=== PATIENT | male | born 1980 | race Caucasian/White ===

== ENCOUNTER 2017-02-20 18:22 | Emergency (ER) | payer OTHER ==
[~2017-02-20] VITALS: Ht 180.3 cm; Wt 158.8 kg
[~2017-02-20 18:22] MED LIST: AMOXICILLIN875 MG PO; AMOXIL500 MG PO; ENDOCET 325 MG-1 TA1 PO; FLEXERIL10 MG PO; MEDROL4 M2 PO; MOTRIN 600 MG600 MG PO; MOTRIN800 MG PO; PERCOCET 325 MG1 TA2 PO; PROAIR HFA8.5 GM INH; VICODIN 300 MG-1 TAB PO; VICODIN 5-3001 EACH PO
[2017-02-20 18:25] VITALS: BP 133/93
== END 2017-02-20 21:08 | disposition admitted as inpatient to this hospital (09) ==
LOC: ERH 18:22
DX: G47.00 Insomnia, unspecified (principal); R05 Cough

== ENCOUNTER 2017-03-20 07:41 | Emergency (ER) | payer OTHER ==
[~2017-03-20] VITALS: Ht 180.3 cm; Wt 158.8 kg
[2017-03-20 07:45] VITALS: BP 141/89
--- NOTE | 2017-03-20 08:33 | ED GENERAL ADULT ---
History of Present Illness General Chief Complaint: Lower Extremity Problems Stated Complaint: SWELLING TO FEET Source: patient Exam Limitations: no limitations Vital Signs & Intake/Output Vital Signs & Intake/Output Vital Signs Date Time Temp Pulse Resp B/P B/P Pulse O2 O2 Flow FiO2 Mean Ox Delivery Rate 03/20 0745 98.2 100 18 141/89 98 Room Air Allergies Coded Allergies: No Known Allergies (02/20/17) Reconcile Medications Albuterol Sulfate (Proair Hfa) 90 MCG HFA.AER.AD 2 PUF INH Q4-6 PRN PRN SHORTNESS OF BREATH (Reported) Triage Note: 36 YO MALE TO TRIAGE C/O INCREASE IN SWELLING IN BILATERAL FEET. HX OF ARTHIRITS, CRACKED BONES ON THE TOP OF HIS FEET, AND NEUORPATHY. DENIES SOB/CP. Triage Nurses Notes Reviewed? yes HPI: Mr. Mckeon is a 36 yo m current smoker (1/2 PPD x > 20 yrs) with a PMH significant for arthritis, neuropathy who presents to ED with BL pedal edema. Patient reports yesterday he noticed his feet began to swell and became progressively worse this morning. He was told by a [employer] Assessor jitendra he has arthritic changes in her feet but was never prescribed any meds. He also reports that he has a poor appetite because he lives in a long-term and does not have healthy options. He denies SOB, PND, orthopnea, palpitations, CP, nausea, vomting, feet pain, urinary or bowel symptoms. (Maggie MONTENEGRO,Rita) Past History Travel History Traveled to [place] past 21 day No Medical History Any Pertinent Medical History? 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 Yes (Rita Serrano MD) Review of Systems Review of Systems Constitutional: Reports: see HPI. (Rita Serrano MD) Physical Exam Physical Exam General Appearance: well developed/nourished, no apparent distress, alert, awake , obese Head: atraumatic, normal appearance Eyes: Bilateral: normal appearance, PERRL, EOMI. Ears, Nose, Throat: normal ENT inspection Neck: large neck size Respiratory: wheezing Cardiovascular: regular rate/rhythm Gastrointestinal: normal bowel sounds, soft, non-tender Extremities: pedal edema Neurologic/Psych: no motor/sensory deficits Core Measures ACS in differential dx? No CVA/TIA Diagnosis: No Sepsis Present: No Sepsis Focused Exam Completed? No (Maggie MONTENEGRO,Rita) Progress Differential Diagnoses I considered the following diagnoses in my evaluation of the patient: CHF, gout, cellulitis Initial ED EKG: none (Maggie MONTENEGRO,Rita) Differential Diagnoses I considered the following diagnoses in my evaluation of the patient: Plan of Care: Orders Procedure Date/time Status EKG 03/20 820 Active Diagnostic Imaging: Viewed by Me: Radiology Read. Discussed w/RAD: Radiology Read. CXR Impression: PATIENT: WALTER MCKEON PRESENT AGE: 36 PATIENT ACCOUNT NO: [id number] : 79 LOCATION: [facility] ORDERING PHYSICIAN: Rita Serrano MD SERVICE DATE: 03/20/17 EXAM TYPE: RAD - XRY- PORTABLE CHEST XRAY EXAMINATION: XR PORTABLE CHEST CLINICAL INFORMATION: Bilateral pedal edema and wheezing. Assess for congestive heart failure. COMPARISON: Chest x-ray 09/10/2016. TECHNIQUE: Portable AP erect view of the chest was obtained. FINDINGS: The lung macias are hypoexpanded bilaterally. Mild increased linear opacity at the bases may be consistent with atelectasis. There is mild bronchial wall thickening. The cardiac silhouette is normal in size. There are no pleural effusions. The central pulmonary vasculature appears normal. There are no acute osseous findings. IMPRESSION: 1. The lungs are hypoexpanded bilaterally with likely atelectasis at the bases. There is no focal consolidation. 2. Bronchial wall thickening may be consistent with reactive airways disease or bronchitis. 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 <Electronically signed in Other Vendor System> SIGNED BY: Lloyd Deluna MD 03/20/17927 (Roseanne Davila MD) Departure Departure Disposition: HOME OR SELF CARE Condition: Stable Clinical Impression Primary Impression: Leg edema Referrals: Erin Reynolds APRN (PCP/Family) Additional Instructions: Follow up with your PCP upon discharge Follow up for sleep study for KENZIE upon discharge Departure Forms: Customer Survey General Discharge Information (Rita Serrano MD) Resident Co-Sign Statement Statement: ED Attending supervision documentation- [x] I saw and evaluated the patient. I have also reviewed all the pertinent lab results and diagnostic results. I agree with the findings and the plan of care as documented in the Resident's documentation. [x] I have reviewed the ED Record and agree with the Resident's documentation. [] Additions or exceptions (if any) to the Resident's note and plan are summarized below: [] (Roseanne Davila MD) Critical Care Note Critical Care Note Critical Care Time: non-applicable (Rita Serrano MD)
--- NOTE | 2017-03-20 09:28 | RADIOLOGY REPORT ---
EXAMINATION: XR PORTABLE CHEST CLINICAL INFORMATION: Bilateral pedal edema and wheezing. Assess for congestive heart failure. COMPARISON: Chest x-ray 09/10/2016. TECHNIQUE: Portable AP erect view of the chest was obtained. FINDINGS: The lung macias are hypoexpanded bilaterally. Mild increased linear opacity at the bases may be consistent with atelectasis. There is mild bronchial wall thickening. The cardiac silhouette is normal in size. There are no pleural effusions. The central pulmonary vasculature appears normal. There are no acute osseous findings. IMPRESSION: 1. The lungs are hypoexpanded bilaterally with likely atelectasis at the bases. There is no focal consolidation. 2. Bronchial wall thickening may be consistent with reactive airways disease or bronchitis.
== END 2017-03-20 09:40 ==
LOC: ERH 07:41
DX: R60.0 Localized edema (principal)
CPT/HCPCS: 71045; 93005; 93010

== ENCOUNTER 2017-06-05 08:42 | Emergency (ER) | payer OTHER ==
[~2017-06-05] VITALS: Ht 180.3 cm; Wt 163.3 kg
[~2017-06-05 08:42] MED LIST changes: +AUGMENTIN 875-1 EACH PO; +HYDROCHLOROTH12.5 M3 PO; +IBUPROFEN800 M1 PO; +LYRICA50 M1 PO; +METFORMIN HCL1000 M1 PO; +PANTOPRAZOLE SO40 M1 PO
--- NOTE | 2017-06-05 10:08 | ED CARDIAC/CP/PALPITATIONS ---
History of Present Illness General Chief Complaint: Chest Pain Stated Complaint: CP Source: patient Exam Limitations: no limitations Vital Signs & Intake/Output Vital Signs & Intake/Output Vital Signs Date Time Temp Pulse Resp B/P B/P Pulse O2 O2 Flow FiO2 Mean Ox Delivery Rate 06/05 1318 98.0 88 20 140/80 98 Room Air ED Intake and Output 06/06 0000 06/05 1200 Intake Total Output Total Balance Patient 360 lb Weight Weight Reported by Patient Measurement Method Allergies Coded Allergies: No Known Allergies (02/20/17) Reconcile Medications Albuterol Sulfate (Proair Hfa) 90 MCG HFA.AER.AD 2 PUF INH Q4-6 PRN PRN SHORTNESS OF BREATH (Reported) Fluticasone Propionate 50 MCG/ACTUATION SPRAY.SUSP 2 SPRAY NASB DAILY ALLERGIES (Reported) Fluticasone Propionate (Flovent Diskus) 100 MCG BLST.W.DEV 1 PUF INH BID BREATHING PROBLEMS (Reported) Hydrochlorothiazide 12.5 MG CAPSULE 1 CAP PO DAILY HTN (Reported) Ibuprofen 800 MG TABLET 1 TAB PO TID PRN PAIN Metformin HCl 1,000 MG TABLET 1 TAB PO BID DM (Reported) Pantoprazole Sodium 40 MG TABLET.DR 1 TAB PO DAILY GERD (Reported) Pregabalin (Lyrica) 50 MG CAPSULE 1 CAP PO TID NEUROPATHY (Reported) Triage Note: PT C/O CP AND SOB SINCE 629. STATES HE WOKE AND WENT TO GET A SIP OF WATER WHEN THE PAIN STARTED. + SOB WITH THE CP. PAIN HAS BEEN CONSTANT SINCE WAKING UP Triage Nurses Notes Reviewed? yes Onset: UPON AWAKENING AT ABOUT 7AM Duration: hour(s):, constant, continues in ED, getting worse Quality/Severity: pressure, sharp, tightness Location: central HPI: Patient presents for evaluation of central chest pain that began this morning, noted upon awakening. Pain worsens with movement and leaning forward and leaning backwards. He denies any prior episodes of this type of pain. Patient denies any associated fever or cold symptoms. In addition the patient states he has a headache and had one episode of loose stool. Patient denies abdominal pain nausea or vomiting. Patient admits to a number of life stressors including currently living in a prison and the recent loss of his job and the of his mother. Past History Travel History Traveled to [place] past 21 day No Medical History Any Pertinent Medical History? 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 No Review of Systems Review of Systems Constitutional: Reports: no symptoms. EENTM: Reports: no symptoms. Respiratory: Reports: no symptoms. Cardiovascular: Reports: chest pain. GI: Reports: see HPI. Genitourinary: Reports: no symptoms. Musculoskeletal: Reports: no symptoms. Skin: Reports: no symptoms. Neurological/Psychological: Reports: headache, other (NEUROPATHIES OF LEGS). Hematologic/Endocrine: Reports: no symptoms. Immunologic/Allergic: Reports: no symptoms. All Other Systems: Reviewed and Negative Physical Exam Physical Exam Cardiovascular: SEE BELOW Comments: Gen.: Well-nourished, well-developed, no acute respiratory distress.obese Head: Normocephalic, atraumatic. Eyes: Normal inspection bilaterally Ears: Normal inspection bilaterally Nose: Normal inspection Throat/mouth : Moist mucosa Neck: Supple, full range of motion, no goiter Heart: Regular rate and rhythm, no murmurs rubs or gallops Lungs: Clear to auscultation bilaterally with normal air entry Chest: Back: Normal range of motion Abdomen: Soft, nontender, nondistended, normal bowel sounds Extremities: Normal range of motion grossly, equal radial pulses, no cyanosis clubbing or edema Neurologic: Cranial nerves grossly intact, speech is clear Skin: warm and dry Psychiatric: Calm, cooperative, no apparent delusions or hallucinations Core Measures ACS in differential dx? No CVA/TIA Diagnosis No Sepsis Present: No Sepsis Focused Exam Completed? No Progress Differential Diagnosis: AMI, atrial fibrillation, musculoskeletal pain, pericarditis, pneumonia, PSVT, PVCs/PACs, unstable angina Plan of Care: Orders Procedure Date/time Status Add-on Test (ER Only) 06/05 1019 Active D-DIMER 06/05 0952 Complete URINE DRUG SCREEN FOR ER ONLY 06/05 09 Complete TROPONIN LEVEL 06/05 905 Complete COMPREHENSIVE METABOLIC PANEL 06/05 905 Complete CBC WITHOUT DIFFERENTIAL 06/05 905 Complete EKG 06/05 0843 Active Current Medications Sig/Bernard Start time Last Medication Dose Stop Time Status Admin Ketorolac 30 MG ONCE ONE 06/05 1030 CAN Tromethamine 06/05 1031 (Toradol) Sodium Chloride 500 ML BOLUS ONE 06/05 1030 CAN (Normal Saline 0.9%) 06/05 1129 Laboratory Tests 06/05/17 1037: Urine Opiates Screen < 100, Methadone Screen < 40, Barbiturate Screen < 60, Ur Phencyclidine Scrn < 6.00, Amphetamines Screen < 100, U Benzodiazepines Scrn < 85, Urine Cocaine Screen < 50, Urine Cannabis Screen > 80.00 H 06/05/17 0952: Anion Gap 9, Estimated GFR > 60, BUN/Creatinine Ratio 16.7, Glucose 141 H, Calcium 9.5, Total Bilirubin 0.6, AST 24, ALT 56, Alkaline Phosphatase 82, Troponin I < 0.01, Total Protein 6.5, Albumin 3.7, Globulin 2.8, Albumin/ Globulin Ratio 1.3, D-Dimer High Sensitivty < 200, CBC w Diff NO MAN DIFF REQ, RBC 5.03, MCV 90.8, MCH 30.0, MCHC 33.1, RDW 13.8, MPV 8.5, Gran % 78.2 H, Lymphocytes % 15.5 L, Monocytes % 4.9, Eosinophils % 1.2, Basophils % 0.2, Absolute Granulocytes 9.7 H, Absolute Lymphocytes 1.9, Absolute Monocytes 0.6, Absolute Eosinophils 0.1, Absolute Basophils 0 Diagnostic Imaging: Discussed w/RAD: Radiology Read. CXR Impression: PATIENT: WALTER MCKEON PRESENT AGE: 36 PATIENT ACCOUNT NO: [id number] : 79 LOCATION: [facility] ORDERING PHYSICIAN: Chris Dale MD SERVICE DATE: 06/05/17 EXAM TYPE: RAD - XRY-CHEST XRAY, TWO VIEWS EXAMINATION: XR CHEST CLINICAL INFORMATION: Chest pain. COMPARISON: Chest radiograph 03/20/2017. TECHNIQUE: 2 views of the chest were obtained. FINDINGS: Lungs are well expanded. No focal consolidative disease, pleural effusion, or pneumothorax. The cardiac silhouette and upper mediastinal contours are normal. No acute osseous finding. IMPRESSION: Unremarkable chest radiograph. No consolidative disease or effusion. DICTATED BY: Eddi Granda MD DATE/TIME DICTATED:06/05/171241 HOUSEKEEPING AID:ROSALIE DATE/TIME TRANSCRIBED:06/05/171241 CONFIDENTIAL, DO NOT COPY WITHOUT APPROPRIATE AUTHORIZATION. <Electronically signed in Other Vendor System> SIGNED BY: Eddi Granda MD. 06/05/17 1242 Initial ED EKG: NSR, rate (99), no ST T wave changes Prior EKG: unchanged Comments: 06/05/2017 1:13:37 PM I have updated Walter on his test results. He states he feels just fine with essentially no chest pain at this time. I have recommended repeat EKG and troponin but he has politely declined this. We have discussed the possibility of an occult NH with the patient states he will instead return later on today or perhaps tomorrow for reevaluation. Departure Departure Disposition: HOME OR SELF CARE Condition: Stable Clinical Impression Primary Impression: Atypical chest pain Referrals: Erin Reynolds APRN (PCP/Family) Additional Instructions: You are leaving prior to a second EKG and troponin level to more definitively rule out a heart attack or angina pain. Heart attacks can be fatal. Please rest and avoid any exertion or heavy lifting. Return to the emergency Department as soon as possible for repeat EKG and troponin testing. Otherwise follow-up with your primary care physician [facility]. Return if any concerns or sudden worsening. Please note that there might be incidental findings in your evaluation that are unrelated to the current emergency department visit. Please notify your primary care doctor about this emergency department visit in order to obtain and review all of the testing performed so that these incidental findings can be monitored as needed. If you had an x-ray performed, please understand that some fractures may not be seen on the initial set of x-rays. If your symptoms persist you might need a repeat set of x-rays to check for such a fracture. If you had a laceration evaluated, please understand that foreign bodies such as glass or wood may not be visible to the naked eye or on plain x-rays. If the wound becomes red, swollen, increasingly more painful or if there is any drainage from the wound, please have it reevaluated by a physician for the possibility of a retained foreign body. If you're unable to follow up as outlined in the discharge instructions please return to the emergency department. Thank you for choosing the [facility] Emergency Department for your care. It was a pleasure to serve you today. Chris Dale M.D. [facility] Departure Forms: Customer Survey General Discharge Information Critical Care Note Critical Care Note Critical Care Time: non-applicable
[2017-06-05 10:18] LABS: ABSOLUTE BASOPHIL COUNT 0 /CUMM (0.0-0.2); ABSOLUTE EOSINOPHIL COUNT 0.1 /CUMM (0.0-0.7); ABSOLUTE GRANULOCYTE CT 9.7 /CUMM (1.4-6.5); ABSOLUTE LYMPH COUNT 1.9 /CUMM (1.2-3.4); ABSOLUTE MONOCYTE COUNT 0.6 /CUMM (0.10-0.60); BASOPHIL % 0.2 % (0.0-2.0); EOSINOPHIL % 1.2 % (0-5); GRANULOCYTE % 78.2 % (42.2-75.2); HEMATOCRIT 45.7 % (42-52); MEAN CORPUSCULAR HGB CONC 33.1 G/DL (33.0-37.0); MEAN CORPUSCULAR VOLUME 90.8 FL (80.0-94.0); MEAN PLATELET VOLUME 8.5 FL (7.4-10.4); PLATELET COUNT 303 /CUMM (130-400); RBC DISTRIBUTION WIDTH 13.8 % (11.5-14.5); RED BLOOD CELL CT 5.03 /CUMM (4.70-6.10); WHITE BLOOD CELL COUNT 12.4 /CUMM (4.8-10.8)
[2017-06-05] MEDS ORDERED: FLUTICASONE PRO16 GM NASB (10:45)
[2017-06-05] MEDS ORDERED: FLOVENT DISKU100 MCG INH (10:45)
--- NOTE | 2017-06-05 12:45 | RADIOLOGY REPORT ---
EXAMINATION: XR CHEST CLINICAL INFORMATION: Chest pain. COMPARISON: Chest radiograph 03/20/2017. TECHNIQUE: 2 views of the chest were obtained. FINDINGS: Lungs are well expanded. No focal consolidative disease, pleural effusion, or pneumothorax. The cardiac silhouette and upper mediastinal contours are normal. No acute osseous finding. IMPRESSION: Unremarkable chest radiograph. No consolidative disease or effusion.
[2017-06-05 13:18] VITALS: BP 140/80
[2017-06-05] MEDS ORDERED: IBUPROFEN800 M1 PO (19:28)
[2017-06-07] MEDS ORDERED: ZITHROMAX250 M2 PO (17:26)
[2017-06-07] MEDS ORDERED: MEDROL4 M2 PO (17:26)
== END 2017-06-05 13:29 ==
LOC: ERH 08:42
PROVIDERS: Physician Assistant
DX: R07.89 Other chest pain (principal)
CPT/HCPCS: 71046; 80307; 93005; 93010; 96372; J1885; J7040